=== PATIENT | female | born 1990 | race Caucasian/White ===

== ENCOUNTER → 2020-11-16 01:09 | Outpatient (CLI) | payer OTHER, SELFPAY ==
[2020-11-16 18:08] LABS: SARS-CoV-2 RNA PCR Negative
== END ==
PROVIDERS: PCP Family Medicine; Visit Provider Surgery Plastic and Reconstructive Surgery
DX: Z01.812 Encounter for preprocedural laboratory examination (principal); Z20.822 Contact with and (suspected) exposure to COVID-19
CPT/HCPCS: C9803; U0003; U0005

== ENCOUNTER 2020-11-19 01:34 | Day surgery (SDC) | payer OTHER, SELFPAY ==
[2020-11-11 18:55] VITALS: BMI 21.0
--- NOTE | 2020-11-18 10:54 | WPDANESEPPF ---
Anes - Initial Pre Proc Eval Procedure: Operation Date: 11/19/20 07:30 Proposed Procedures p Bilateral Breast Augmentation - Naveen Schafer MD Date/Time: 11/18/20 10:54 Surgeon: Naveen Schafer MD Pre Op Diagnosis: Micromastia Patient Data Age: 30 Gender: F Height: 1.57 m Weight: 52.27 kg Allergies Allergy/AdvReac Type Severity Reaction Status Date / Time latex AdvReac Mild Rash Verified 11/19/20 06:41 Home Medications Medication Instructions Recorded Confirmed Type cetirizine 10 mg tablet 10 mg PO DAILY 09/26/20 11/19/20 History paroxetine HCl 30 mg tablet 30 mg PO DAILY 09/26/20 11/19/20 History docusate sodium 100 mg capsule 100 mg PO BID #14 cap 10/28/20 11/19/20 Rx ondansetron HCl 4 mg tablet 4 mg PO Q6H PRN #30 tablet 10/28/20 11/11/20 Rx carisoprodol 350 mg tablet 350 mg PO TID PRN #21 tablet 10/29/20 11/11/20 Rx oxycodone-acetaminophen 5 mg-325 1 tablet PO Q6H PRN #15 tablet 10/29/20 11/11/20 Rx mg tablet levonorgestrel-ethinyl estrad 1 tablet PO DAILY 11/11/20 11/19/20 History [Jolessa] multivitamin 1 cap PO DAILY 11/11/20 11/19/20 History Patient hx anesthesia problems: none Family hx anesthesia problems: none PMFSH Past Medical History Medical History (Updated 11/18/20 @ 10:56 by Erlin Worthington MD) Anxiety Asthma Endometriosis Micromastia Surgical History Surgical History Hx of LASIK Family History Family History Other Hypertension Social History Social History Smoking status: Never smoker Alcohol intake: current Drinks per week: 1 Alcohol use details: socially Substance use: never Living arrangements: with family Spiritual care concerns: No Anes - Eval Final PreProcedure Day of Procedure 11/18/20 10:54 Patient weight: normal Heart: regular rate and rhythm Lungs: clear to auscultation and normal air movement Airway: Mallampati scale class II Neurological: alert and oriented Last oral intake: >/= 8 hours ASA classification: II Emergent: no Anesthetic plan: proceed Anesthesia type and monitoring: general LMA Informed Consent: The patient's anesthetic plan and its attendant risks and benefits were discussed with the patient/family/POA. Questions were solicited and answers provided to the satisfaction of the patient/family/POA.
[2020-11-19] VITALS (9 sets, daily range): BP systolic 120–143; BP diastolic 71–91; PULSE 63–130; RESP 12–20; TEMP 36.4–36.9; O2SAT 95–100
--- NOTE | 2020-11-19 06:42 | WPDHPUPDATE1 ---
History and Physical Update Update Date/Time: 11/19/20 06:42 History and Physical has been reviewed, including an updated exam of the patient. There are NO changes in the patient's condition. Risks, benefits, and alternatives have been discussed and questions answered. Patient agrees to proceed with procedure.
--- NOTE | 2020-11-19 06:42 | W.PM.PROC2 ---
Procedure Note - Detailed Date of Procedure 11/19/20 Pre-op Diagnosis Micromastia Post-op Diagnosis same Procedure Performed Bilateral Augmentation Mammaplasty Surgeon Naveen Schafer MD Anesthesia general Findings Bilateral Caterina Prabhakar SoftTouch 335 cc Right - REF# [id number] SN [id number] Left - REF# [id number] SN [id number] Description of Procedure She is here today for bilateral breast augmentation. Previously and again today the risks, benefits, alternatives were discussed in extensive detail. I wanted her to be very realistic about the risks involved as well as expectations. We discussed aftercare and what to monitor for. Made sure answered all of her questions to her satisfaction today and consent was obtained. Marked in the preoperative holding area with their verification. The patient was taken to the operating room placed supine on the operating table. Anesthesia was provided by anesthesiology. A surgical time-out was taken. We cleansed the skin and 1% lidocaine and 0.25% Marcaine with epinephrine was used anesthetize as a field block. She was prepped and draped in a standard sterile fashion. Tegaderm nipple Melendrez were placed. A 15 blade used to make an incision along the inframammary fold. Dissection was continued at 45 degree angle until the chest wall as identified. I incised the pectoralis major along its inferior border and completely released the inferior border leaving the medial border intact. I created a subpectoral pocket in the appropriate dimensions based on our preoperative planning for the implant. I then copiously irrigated with saline solution and verified a strict hemostasis. Next the use a triple antibiotic and Betadine containing solution to irrigate the pocket. I washed my gloves with the triple antibiotic and Betadine solution. We washed the implant immediately upon opening it with this solution and only opened it when we needed it. I used implant funnel and no-touch technique. The implant was introduced into the pocket using the funnel. Having verified positioning of the implant this was closed using 2-0 Vicryl followed by 3-0 Monocryl in a running subcuticular 4-0 Monocryl followed by tissue glue. Fluffs, Ilya wrap, and surgical bra were placed. Patient was awoke and taken to PACU without difficulty. All instrument sponge counts were correct at the end of the case. Estimated Blood Loss 10 Drains No Packing No Pathology none sent Complications No immediate complications Condition stable Disposition PACU
[2020-11-19] MEDS: LACTATED RINGERS 1,000 ML 30 ML IV CONT ×2 (06:55→08:20)
[2020-11-19] MEDS: ceFAZolin 2 GM/D5W 50 ML 2 GM/50 ML BAG IVPB (07:23)
[2020-11-19] MEDS: TRANEXAMIC ACID 1,000MG/ISO100 1,000 MG/100 ML BAG 200 MG IVPB (07:31)
[2020-11-19] MEDS: BUPIVACAINE HCL 0.25% PF 30 ML VIAL INFILTRATE (07:40)
[2020-11-19] MEDS: LIDO 1%/EPINEPHRINE/PF 1:200,000 30 ML VIAL XX (07:42)
--- NOTE | 2020-11-19 07:51 | SUR.OPER ---
Right Breast Implant 335cc Lot: [id number] Expiration: 11-25-2024 Left Breast Implant 335cc Lot: [id number] Expiration: 05-25-2025
[2020-11-19] MEDS: fentaNYL CITRATE INJ (*CRX) 100 MCG/2 ML VIAL 25 MCG IV PUSH ×3 (08:36→08:43)
[2020-11-19] MEDS: diphenhydrAMINE HCl INJ 50 MG/ML VIAL 25 MG IV PUSH ×2 (08:50→09:00)
[2020-11-19] MEDS: KETOROLAC 15 MG/ML VIAL (*BKC) IV PUSH (09:27)
[2020-11-19] MEDS: oxyCODONE HCL (*CRX) 5 MG TAB IR PO (09:43)
== END 2020-11-19 10:21 | disposition home or self-care (01) ==
PROVIDERS: PCP Family Medicine; Visit Provider Surgery Plastic and Reconstructive Surgery
PROC: (CPT 19325; principal; 2020-11-19 07:30)
DX: Z41.1 Encounter for cosmetic surgery (principal); N64.82 Hypoplasia of breast; J45.909 Unspecified asthma, uncomplicated; F41.9 Anxiety disorder, unspecified
CPT/HCPCS: 19325; A9270; J0690; J1100; J1200; J1580; J1885; J2250; J2405; J2704; J3010; J7030; J7120